=== PATIENT | female | born 1950 | race Caucasian/White ===

== ENCOUNTER 2019-03-15 03:55 | Emergency (ER) | payer MEDICARE ==
[~2019-03-15] VITALS: Wt 54.4 kg
[2019-03-15] MEDS ORDERED: LISINOPRIL5 MG PO (03:58)
== END 2019-03-15 04:25 | disposition home or self-care (01) ==
LOC: ED 03:55
DX: L25.5 Unspecified contact dermatitis due to plants, except food (principal); Z79.899 Other long term (current) drug therapy

== ENCOUNTER 2021-02-02 20:23 | Emergency (ER) | payer MEDICARE ==
[~2021-02-02] VITALS: Ht 154.9 cm; Wt 54.4 kg
[~2021-02-02 20:23] MED LIST: LISINOPRIL5 MG PO
[2021-02-02] MEDS ORDERED: PEPCID20 MG PO (21:53)
[2021-02-02] MEDS ORDERED: MEDROL DOSEPAK4 MG PO (21:53)
== END 2021-02-02 22:00 | disposition home or self-care (01) ==
LOC: ED 20:23
DX: L50.9 Urticaria, unspecified (principal); I10 Essential (primary) hypertension; Z79.899 Other long term (current) drug therapy; Z96.649 Presence of unspecified artificial hip joint

== ENCOUNTER → 2021-11-19 | Outpatient (CLI) | payer MEDICARE ==
[~2021-11-19] MED LIST changes: +MEDROL DOSEPAK4 MG PO; +PEPCID20 MG PO
== END | disposition home or self-care (01) ==
LOC: COVID19 16:10
PROVIDERS: ATTEND Hospitalist
DX: Z11.52 Encounter for screening for COVID-19 (principal)